=== PATIENT | female | born 1975 | race African-American/Black ===

== ENCOUNTER 2017-03-14 10:24 | Emergency (ER) | payer MEDICAID, OTHER ==
[~2017-03-14] VITALS: Ht 170.2 cm; Wt 90.9 kg
[2017-03-14] MEDS ORDERED: DIPH12.540 PO (10:35)
[2017-03-14] MEDS ORDERED: GUAIFDM PO (10:35)
[2017-03-14] MEDS ORDERED: ACET-66 PO (10:35)
[2017-03-14] MEDS ORDERED: IBUP-2076 PO (10:35)
[2017-03-14] MEDS ORDERED: DIPH25 PO (10:53)
[2017-03-14 11:40] VITALS: BP 140/89
== END 2017-03-14 12:05 | disposition home or self-care (01) ==
LOC: EMS 10:27
DX: J02.8 Acute pharyngitis due to other specified organisms (principal); B97.89 Other viral agents as the cause of diseases classified elsewhere; H66.93 Otitis media, unspecified, bilateral
CPT/HCPCS: 87430; 99283

== ENCOUNTER 2017-07-26 12:10 | Emergency (ER) | payer OTHER ==
[~2017-07-26] VITALS: Ht 154.9 cm; Wt 97.7 kg
[~2017-07-26 12:10] MED LIST: ACET-66 PO; DIPH25 PO; GUAIFDM PO; IBUP-2076 PO
[2017-07-26 12:33] VITALS: BP 133/99
== END 2017-07-26 13:37 | disposition home or self-care (01) ==
LOC: EMS 12:12
DX: J40 Bronchitis, not specified as acute or chronic (principal); J32.9 Chronic sinusitis, unspecified; Z79.899 Other long term (current) drug therapy; M25.511 Pain in right shoulder
CPT/HCPCS: 99283

== ENCOUNTER 2017-07-29 13:59 | Emergency (ER) | payer OTHER ==
[~2017-07-29] VITALS: Ht 154.9 cm; Wt 97.7 kg
[~2017-07-29 13:59] MED LIST changes: -ACET-66 PO; -DIPH25 PO; -GUAIFDM PO
[2017-07-29] MEDS ORDERED: AMOX250C4 PO (14:32)
[2017-07-29] MEDS ORDERED: GUAIF10 PO (14:32)
[2017-07-29 17:00] VITALS: BP 125/74
== END 2017-07-29 17:41 | disposition home or self-care (01) ==
LOC: EMS 14:00
DX: J40 Bronchitis, not specified as acute or chronic (principal)
CPT/HCPCS: 99283

== ENCOUNTER 2017-09-12 18:02 | Emergency (ER) | payer OTHER ==
[~2017-09-12] VITALS: Ht 154.9 cm; Wt 97.7 kg
[~2017-09-12 18:02] MED LIST changes: +AMOX250C4 PO; +GUAIF10 PO; -IBUP-2076 PO
[2017-09-12 18:18] LABS: GLUCOSE,POINT OF CARE 148 MG/DL (70-110)
[2017-09-12 20:08] LABS: BASOPHILS % (AUTO) 0.6 % (0.0-2.0); EOSINOPHILS % (AUTO) 2.2 % (1.0-6.0); HEMATOCRIT 40.4 % (36-46); HEMOGLOBIN 13.9 g/dL (12.0-16.0); LYMPHOCYTES # (AUTO) 1.6 K/uL (1.0-4.8); LYMPHOCYTES % (AUTO) 21.5 % (22.0-44.0); MEAN CORPUSCULAR HEMOGLOBIN 31.7 pg (26.0-34.0); MEAN CORPUSCULAR HGB CONC 34.4 G/dL (31.0-37.0); MEAN CORPUSCULAR VOLUME 92 fL (80-100); MONOCYTES % (AUTO) 12.6 % (2.0-9.0); NEUTROPHILS # (AUTO) 4.8 K/uL (1.8-7.7); NEUTROPHILS % (AUTO) 63.1 % (40.0-70.0); PLATELET COUNT (AUTO) 284 K/uL (150-450); RED BLOOD CELL COUNT(AUTO) 4.38 MIL/uL (4.00-5.20); RED CELL DISTRIBUTION WIDTH 13.3 % (11.5-14.5)
[2017-09-12 20:11] LABS: APPEARANCE,URINE CLOUDY (CLEAR); BILIRUBIN,URINE NEGATIVE (NEGATIVE); GLUCOSE, URINE (UA) NEGATIVE (NEGATIVE); KETONES,URINE NEGATIVE (NEGATIVE); LEUKOCYTE ESTERASE ,URINE SMALL (NEGATIVE); NITRATE,URINE NEGATIVE (NEGATIVE); OCCULT BLOOD,URINE NEGATIVE (NEGATIVE); PH,URINE 6.5 (5.0-8.0); PROTEIN,URINE NEGATIVE (NEGATIVE)
[2017-09-12 20:16] LABS: AMPHET/METH SCREEN,URINE NEGATIVE (NEGATIVE); BARBITURATE SCREEN, URINE NEGATIVE (NEGATIVE); BENZODIAZEPINES SCREEN,URINE NEGATIVE (NEGATIVE); CANNABINOID SCREEN,URINE NEGATIVE (NEGATIVE); COCAINE SCREEN,URINE POSITIVE (NEGATIVE); METHADONE SCREEN, URINE NEGATIVE (NEGATIVE); OPIATE SCREEN,URINE NEGATIVE (NEGATIVE)
[2017-09-12 20:17] LABS: PHENCYCLIDINE SCREEN,URINE NEGATIVE (NEGATIVE)
[2017-09-12 20:18] LABS: ANION GAP 6 mmol/L (8-16); CALCIUM, TOTAL 8.8 mg/dL (8.8-10.5); CARBON DIOXIDE 29 mmol/L (22-29); CHLORIDE 105 mmol/L (98-107); CREATININE 0.77 mg/dL (0.60-1.30); GLOMERULAR FILTR. RATE CALC > 60 mL/min (>60); GLUCOSE,RANDOM 85 mg/dL (70-110); POTASSIUM 3.9 mmol/L (3.5-5.1); SODIUM SERUM 140 mmol/L (136-145); UREA NITROGEN, BLOOD 14 mg/dL (7-18)
[2017-09-12 20:25] LABS: BACTERIA,URINE Few /HPF (None Seen); RBC,URINE 0-2 /HPF (0-2); SQUAMOUS EPITHELIAL CELL,UR Few /LPF (None Seen)
[2017-09-12 20:25] LABS: ALANINE AMINOTRANSFERASE 20 U/L (12-78); ALBUMIN 3.6 g/dL (3.4-5.0); ALKALINE PHOSPHATASE 93 U/L (46-116); ASPARTATE AMINOTRANSFERASE 19 U/L (15-37); BILIRUBIN,TOTAL 0.2 mg/dL (0.1-1.0); TOTAL PROTEIN, SERUM 7.7 g/dL (6.4-8.2)
[2017-09-12 23:35] VITALS: BP 129/86
== END 2017-09-12 23:37 | disposition home or self-care (01) ==
LOC: EMS 18:02
DX: R42 Dizziness and giddiness (principal); F14.10 Cocaine abuse, uncomplicated; H53.8 Other visual disturbances; R53.1 Weakness
CPT/HCPCS: 87086; 93005; 99285

== ENCOUNTER 2018-04-27 19:20 | Emergency (ER) | payer SELFPAY | END 2018-04-27 20:30 | disposition left against medical advice (07) | LOC: EMS 19:20 | DX: M79.89 Other specified soft tissue disorders (principal); Z53.21 Procedure and treatment not carried out due to patient leaving prior to being seen by health care provider ==

== ENCOUNTER 2019-08-28 09:00 | Emergency (ER) | payer MEDICAID ==
[~2019-08-28] VITALS: Ht 154.9 cm; Wt 95.5 kg
[2019-08-28 10:20] VITALS: BP 156/98
[2019-08-28] MEDS ORDERED: IBUPROFEN 800 MG TABLET PO ONE (10:30)
== END 2019-08-28 11:21 | disposition home or self-care (01) ==
LOC: EMS 09:01
DX: S92.255A Nondisplaced fracture of navicular [scaphoid] of left foot, initial encounter for closed fracture (principal); X58.XXXA Exposure to other specified factors, initial encounter; Y93.89 Activity, other specified; Y92.89 Other specified places as the place of occurrence of the external cause; Y99.8 Other external cause status

== ENCOUNTER 2020-01-29 10:10 | Emergency (ER) | payer MEDICAID ==
[~2020-01-29] VITALS: Ht 154.9 cm; Wt 95.5 kg
[2020-01-29] MEDS ORDERED: ACETAMINOPHEN 500 MG TABLET PO ONE (12:30)
[2020-01-29] MEDS ORDERED: IBUPROFEN 600 MG TABLET PO ONE (12:30)
[2020-01-29 12:47] VITALS: BP 141/81
== END 2020-01-29 13:25 | disposition home or self-care (01) ==
LOC: EMS 10:36
DX: S29.012A Strain of muscle and tendon of back wall of thorax, initial encounter (principal); M54.2 Cervicalgia; I10 Essential (primary) hypertension; R51.9 Headache, unspecified; V49.9XXA Car occupant (driver) (passenger) injured in unspecified traffic accident, initial encounter; Y93.89 Activity, other specified; Y92.488 Other paved roadways as the place of occurrence of the external cause; Y99.8 Other external cause status

== ENCOUNTER 2020-04-29 08:06 | Emergency (ER) | payer MEDICAID ==
[~2020-04-29] VITALS: Ht 154.9 cm; Wt 95.5 kg
[2020-04-29] MEDS ORDERED: HYDR25TA2 PO (08:13)
[2020-04-29] MEDS ORDERED: GABA-1181 PO (08:13)
[2020-04-29] MEDS ORDERED: FAMO20 PO (08:13)
[2020-04-29] MEDS ORDERED: AMLO2.5T96 PO (09:27)
[2020-04-29] MEDS ORDERED: TraMADol HCL 50 MG TABLET PO ONE (09:45)
[2020-04-29] MEDS ORDERED: KETOROLAC TROMETHAMINE 30 MG/ML VIAL IM ONE (09:45)
[2020-04-29 11:00] VITALS: BP 142/85
[2020-04-29] MEDS ORDERED: OxyCODONE HCL/ACETAMINOPHEN 5-325 MG TABLET PO ONE (11:00)
== END 2020-04-29 11:17 | disposition home or self-care (01) ==
LOC: EMS 08:06
DX: G44.209 Tension-type headache, unspecified, not intractable (principal); M25.511 Pain in right shoulder; G89.29 Other chronic pain; K21.9 Gastro-esophageal reflux disease without esophagitis; I10 Essential (primary) hypertension
CPT/HCPCS: 96372; 99285; J1885

== ENCOUNTER 2021-01-20 07:54 | Emergency (ER) | payer MEDICAID ==
[~2021-01-20] VITALS: Ht 154.9 cm; Wt 104.0 kg
[~2021-01-20 07:54] MED LIST changes: +AMLO2.5T96 PO; -AMOX250C4 PO; +FAMO20 PO; +GABA-1181 PO; -GUAIF10 PO; +HYDR25TA2 PO
[2021-01-20] MEDS ORDERED: KETOROLAC TROMETHAMINE 30 MG/ML VIAL IM ONE (08:30)
[2021-01-20] MEDS ORDERED: DEXAMETHASONE SOD PHOS 4 MG/ML 5 ML VIAL IM ONE (08:30)
[2021-01-20] MEDS ORDERED: ACETAMINOPHEN 500 MG TABLET PO ONE (08:30)
[2021-01-20 09:06] LABS: COVID AG,FIA SOURCE NASOPHARYNGEAL
[2021-01-20 09:53] VITALS: BP 162/113
[2021-01-20 10:07] LABS: RAPID GROUP A STREP NEGATIVE (NEGATIVE)
[2021-01-20 10:22] LABS: INFLUENZA TYPE A NEGATIVE FOR TYPE A (NEGATIVE); INFLUENZA TYPE B NEGATIVE FOR TYPE B (NEGATIVE)
== END 2021-01-20 10:05 | disposition home or self-care (01) ==
LOC: EMS 07:54
DX: J02.9 Acute pharyngitis, unspecified (principal); Z20.822 Contact with and (suspected) exposure to COVID-19
CPT/HCPCS: 87426; 87430; 87804; 96372; 99284; J1100; J1885

== ENCOUNTER 2021-04-12 09:02 | Emergency (ER) | payer MEDICAID ==
[~2021-04-12] VITALS: Ht 154.9 cm; Wt 106.8 kg
[2021-04-12 09:14] VITALS: BP 156/112
[2021-04-12] MEDS ORDERED: ACETAMINOPHEN/CODEINE 300-30 MG TABLET PO ONE (09:45)
[2021-04-12 09:50] LABS: COVID AG,FIA SOURCE NASOPHARYNGEAL
[2021-04-12 10:12] LABS: INFLUENZA TYPE A NEGATIVE FOR TYPE A (NEGATIVE); INFLUENZA TYPE B NEGATIVE FOR TYPE B (NEGATIVE)
[2021-04-12] MEDS ORDERED: ACET-2080 PO (10:47)
== END 2021-04-12 10:59 | disposition home or self-care (01) ==
LOC: EMS 09:02
DX: U07.1 COVID-19 (principal); J40 Bronchitis, not specified as acute or chronic; I10 Essential (primary) hypertension; Z79.899 Other long term (current) drug therapy
CPT/HCPCS: 87804; 99283

== ENCOUNTER 2021-09-02 08:35 | Emergency (ER) | payer MEDICAID ==
[~2021-09-02] VITALS: Ht 154.9 cm; Wt 104.5 kg
[~2021-09-02 08:35] MED LIST changes: +ACET-2080 PO
[2021-09-02 08:58] LABS: COVID AG,FIA SOURCE NASAL SWAB
[2021-09-02 10:08] VITALS: BP 149/98
== END 2021-09-02 10:16 | disposition home or self-care (01) ==
LOC: EMS 09:06
DX: J02.8 Acute pharyngitis due to other specified organisms (principal); I10 Essential (primary) hypertension; Z20.822 Contact with and (suspected) exposure to COVID-19
CPT/HCPCS: 99283; 87426; 87430; C9803

== ENCOUNTER 2022-12-01 09:36 | Emergency (ER) | payer MEDICAID, OTHER ==
[~2022-12-01] VITALS: Ht 157.5 cm; Wt 104.5 kg
[2022-12-01 09:39] VITALS: TEMP 97.9
[2022-12-01 09:58] LABS: BASOPHILS % (AUTO) 0.6 % (0.0-2.0); EOSINOPHILS % (AUTO) 3.3 % (1.0-6.0); HEMATOCRIT 39.2 % (36-46); LYMPHOCYTES # (AUTO) 1.7 K/uL (1.0-4.8); LYMPHOCYTES % (AUTO) 29.4 % (22.0-44.0); MEAN CORPUSCULAR HEMOGLOBIN 30.8 pg (26.0-34.0); MEAN CORPUSCULAR HGB CONC 33.1 G/dL (31.0-37.0); MEAN CORPUSCULAR VOLUME 93 fL (80-100); MONOCYTES # (AUTO) 0.7 K/uL (0.1-1.0); MONOCYTES % (AUTO) 12.4 % (2.0-9.0); NEUTROPHILS # (AUTO) 3.1 K/uL (1.8-7.7); NEUTROPHILS % (AUTO) 54.3 % (40.0-70.0); PLATELET COUNT (AUTO) 290 K/uL (150-450); RED BLOOD CELL COUNT(AUTO) 4.22 MIL/uL (4.00-5.20); RED CELL DISTRIBUTION WIDTH 13.2 % (11.5-14.5); WHITE BLOOD COUNT (AUTO) 5.7 K/uL (4.5-11.0)
[2022-12-01 10:09] LABS: ANION GAP 8 mmol/L (8-16); CALCIUM, TOTAL 8.7 mg/dL (8.8-10.5); CARBON DIOXIDE 25 mmol/L (22-29); CHLORIDE 106 mmol/L (98-107); CREATININE 0.64 mg/dL (0.60-1.30); GLOMERULAR FILTR. RATE CALC > 60 mL/min (>60); GLUCOSE,RANDOM 113 mg/dL (70-110); SODIUM SERUM 139 mmol/L (136-145); UREA NITROGEN, BLOOD 16 mg/dL (7-18)
[2022-12-01 10:15] LABS: ALANINE AMINOTRANSFERASE 21 U/L (12-78); ALBUMIN 3.3 g/dL (3.4-5.0); ALKALINE PHOSPHATASE 112 U/L (46-116); ASPARTATE AMINOTRANSFERASE 19 U/L (15-37); BILIRUBIN,TOTAL 0.2 mg/dL (0.1-1.0); TOTAL PROTEIN, SERUM 7.1 g/dL (6.4-8.2)
[2022-12-01] MEDS ORDERED: AmLODIPine BESYLATE 5 MG TABLET PO ONE (10:15)
[2022-12-01] MEDS ORDERED: HYDROCHLOROTHIAZIDE 25 MG TABLET PO ONE (10:15)
[2022-12-01 10:32] LABS: HCG,QUANTITATIVE < 1 mIU/mL (0-6)
[2022-12-01 11:45] VITALS: BP 156/96; PULSE 63; RESP 16
[2022-12-01] MEDS ORDERED: AMLO-257 PO (12:14)
[2022-12-01] MEDS ORDERED: HYDR25TA2 PO (12:15)
== END 2022-12-01 12:31 | disposition home or self-care (01) ==
LOC: EMS 09:44
DX: I10 Essential (primary) hypertension (principal)
CPT/HCPCS: 80053; 84702; 85025; 93005; 99284

== ENCOUNTER 2023-03-22 07:26 | Emergency (ER) | payer OTHER ==
[~2023-03-22] VITALS: Ht 154.9 cm; Wt 113.6 kg
[~2023-03-22 07:26] MED LIST changes: -ACET-2080 PO; +AMLO-257 PO; -AMLO2.5T96 PO; -FAMO20 PO; -GABA-1181 PO
[2023-03-22 07:38] VITALS: BP 181/110; PULSE 72; RESP 18; TEMP 98.4
[2023-03-22] MEDS ORDERED: KETOROLAC TROMETHAMINE 60 MG/2 ML VIAL IM ONE (08:00)
[2023-03-22] MEDS ORDERED: PredniSONE 20 MG TABLET PO ONE (08:00)
[2023-03-22] MEDS ORDERED: AMOXICILLIN TRIHYDRATE 250 MG CAPSULE PO ONE (08:00)
[2023-03-22] MEDS ORDERED: AmLODIPine BESYLATE 5 MG TABLET PO ONE (08:30)
[2023-03-22 09:10] LABS: COVID AG,FIA SOURCE NASAL SWAB
[2023-03-22 09:34] LABS: RAPID GROUP A STREP NEGATIVE (NEGATIVE)
[2023-03-22 09:38] LABS: SARS-COV2 (COVID) ANTIGEN,FIA Negative (Negative)
[2023-03-22 09:42] LABS: INFLUENZA TYPE A NEGATIVE FOR TYPE A (NEGATIVE); INFLUENZA TYPE B NEGATIVE FOR TYPE B (NEGATIVE)
[2023-03-22] MEDS ORDERED: AMLO-257 PO (10:28)
[2023-03-22] MEDS ORDERED: AMOX500C2 PO (10:29)
== END 2023-03-22 10:50 | disposition home or self-care (01) ==
LOC: EMS 07:26
DX: J32.9 Chronic sinusitis, unspecified (principal); I10 Essential (primary) hypertension; Z20.822 Contact with and (suspected) exposure to COVID-19
CPT/HCPCS: 99284; 87426; 87430; 87804; 96372; J1885; J7512

== ENCOUNTER 2024-09-06 13:17 | Emergency (ER) | payer OTHER ==
[~2024-09-06] VITALS: Ht 154.9 cm; Wt 109.1 kg
[~2024-09-06 13:17] MED LIST changes: +AMOX500C2 PO; -HYDR25TA2 PO
[2024-09-06 13:29] VITALS: TEMP 98.7
[2024-09-06 14:47] LABS: PLATELET COUNT (AUTO) 238 K/uL (150-450); RED BLOOD CELL COUNT(AUTO) 4.10 MIL/uL (4.00-5.20); RED CELL DISTRIBUTION WIDTH 13.1 % (11.5-14.5); WHITE BLOOD COUNT (AUTO) 6.8 K/uL (4.5-11.0)
[2024-09-06 15:20] LABS: CALCIUM, TOTAL 9.0 mg/dL (8.8-10.5); CREATININE 0.94 mg/dL (0.60-1.30); GLOMERULAR FILTR. RATE CALC > 60 mL/min (>60); GLUCOSE,RANDOM 107 mg/dL (70-110); SODIUM SERUM 141 mmol/L (136-145); UREA NITROGEN, BLOOD 12 mg/dL (7-18)
[2024-09-06] MEDS: ACETAMINOPHEN 500 MG TABLET PO ONE (15:29)
[2024-09-06 15:30] LABS: TROPONIN I-HIGH SENSITIVITY Less Than 4 ng/L (<51)
[2024-09-06] MEDS: MAG HYDROX/ALUMINUM HYD/SIMETH 30 ML SUSPENSION UDCUP PO ONE (15:32)
[2024-09-06 16:18] LABS: APPEARANCE,URINE HAZY (CLEAR); GLUCOSE, URINE (UA) NEGATIVE (NEGATIVE); LEUKOCYTE ESTERASE ,URINE TRACE (NEGATIVE); NITRATE,URINE NEGATIVE (NEGATIVE); OCCULT BLOOD,URINE NEGATIVE (NEGATIVE); SPECIFIC GRAVITIY, URINE 1.020 (1.003-1.030)
[2024-09-06 16:38] LABS: SQUAMOUS EPITHELIAL CELL,UR Moderate /LPF (None Seen)
[2024-09-06] MEDS ORDERED: HYDR25TA2 PO (17:59)
[2024-09-06 18:15] VITALS: BP 149/89; PULSE 71; RESP 20; O2SAT 98
== END 2024-09-06 18:15 | disposition home or self-care (01) ==
LOC: EMS 13:19
DX: I10 Essential (primary) hypertension (principal); R07.89 Other chest pain; I48.91 Unspecified atrial fibrillation; Z79.899 Other long term (current) drug therapy
CPT/HCPCS: 71045; 80048; 81001; 83880; 84484; 85025; 93005; 99285; 36415-L1; 36415-TC

== ENCOUNTER 2024-09-19 10:13 | Emergency (ER) | payer SELFPAY ==
[~2024-09-19] VITALS: Ht 154.9 cm; Wt 113.6 kg
[~2024-09-19 10:13] MED LIST changes: -AMOX500C2 PO; +HYDR25TA2 PO
[2024-09-19 10:15] VITALS: BP 159/111; PULSE 103; RESP 16; TEMP 97.3; O2SAT 100
[2024-09-19 10:35] LABS: COVID AG,FIA SOURCE NASAL SWAB
[2024-09-19 10:52] LABS: PLATELET COUNT (AUTO) 298 K/uL (150-450); RED BLOOD CELL COUNT(AUTO) 4.49 MIL/uL (4.00-5.20); RED CELL DISTRIBUTION WIDTH 12.5 % (11.5-14.5); WHITE BLOOD COUNT (AUTO) 6.2 K/uL (4.5-11.0)
[2024-09-19 11:02] LABS: SARS-COV2 (COVID) ANTIGEN,FIA Negative (Negative)
[2024-09-19 11:03] LABS: INFLUENZA TYPE A NEGATIVE FOR TYPE A (NEGATIVE); INFLUENZA TYPE B NEGATIVE FOR TYPE B (NEGATIVE)
[2024-09-19] MEDS ORDERED: FLUT16SP NASAL (12:29)
[2024-09-19] MEDS ORDERED: AMOX-457 PO (12:29)
== END 2024-09-19 12:39 | disposition home or self-care (01) ==
LOC: EMS 10:13
DX: J01.90 Acute sinusitis, unspecified (principal); I48.91 Unspecified atrial fibrillation; I10 Essential (primary) hypertension; Z79.899 Other long term (current) drug therapy; Z20.822 Contact with and (suspected) exposure to COVID-19
CPT/HCPCS: 85025; 87804; 99283